=== PATIENT | female | born 1935 | race Caucasian/White ===

== ENCOUNTER 2017-04-14 13:32 | Emergency (ER) | payer MEDICARE, OTHER ==
[2017-04-14 13:50] VITALS: BP 160/74
[2017-04-14] MEDS ORDERED: Sodium Chloride 0.9% 10 ML Syringe FLUSH PRN (14:08)
--- NOTE | 2017-04-15 08:27 | ER ---
Date of Service: 04/14/2017 SUBJECTIVE: Leola presents to the emergency room stating that she has a pneumothorax. The patient is cared for by Bridget Jefferson at [facility] in [place]. The patient underwent a CT scan of her chest approximately 2 days ago and was found to have a spontaneous pneumothorax. The results were subsequently obtained today and the patient was told to come to the emergency room. The patient has a history of spontaneous pneumothoraces, the last 1 being on 02 of July last year. The patient was transferred to [facility] as she was stable and underwent percutaneous reinflation of the lung by Dr. Thompson at Interventional Radiology at [facility]. The patient states that she has been doing relatively well. She states that she is not experiencing any significant shortness of breath and states that she feels normal. PAST MEDICAL HISTORY: 1. Spontaneous pneumothoraces. 2. Severe COPD. 3. Congestive heart failure. 4. Graves disease. 5. Chronic diarrhea. 6. GERD. 7. Osteoporosis. SOCIAL HISTORY: She is an ex-smoker. She denies any alcohol use. MEDICATIONS: Please see MAR. REVIEW OF SYSTEMS: General: Denies any fever or chills. HEENT: No sore throat, rhinorrhea, or congestion. Respiratory: Denies any significant shortness of breath. Cardiac: Denies any substernal chest pain. No jaw, arm, neck, or back pain. Gastrointestinal: No nausea, vomiting, or diarrhea. No melena, hematochezia, or hematemesis. Genitourinary: Denies any dysuria. Musculoskeletal: No myalgias or arthralgias. Neurologic: No fainting, blackouts, or lightheadedness. PHYSICAL EXAMINATION: General: This is a 81-year-old female patient, in no acute distress. Vital Signs: Blood pressure is 160/74, respiratory rate 18, O2 saturations 91% on 3 L, temp is 35.8, and pulse rate is 79. Skin: Warm, pink, and dry. HEENT: Head is normocephalic, atraumatic. Mouth, oral mucosa is moist. Lungs: Diminished on the left. Heart: Regular rate and rhythm. Abdomen: Soft, nontender. There is no hepatosplenomegaly noted. There is no masses noted. Extremities: Without edema. Neurologic: The patient is alert, oriented, and answers all questions appropriately. Her speech is fluent. She is alert to time, date, and place. IMAGING: Portable chest x-ray was obtained. She does have evidence of approximately 30% pneumothorax. Labs consisting of a CBC, comprehensive metabolic panel, PT, PTT, and INR were obtained and pending. ASSESSMENT: Spontaneous pneumothorax. PLAN: I did speak with Dr. Francisco, the hospitalist on-call at [facility]. He will accept the patient in transfer. The patient will be transported by [facility] ground ambulance. MWK: 04/14/2017 14:28:09 MODL: 04/14/2017 18:15:02 /[id number]
== END 2017-04-14 14:45 | disposition short-term general hospital (02) ==
LOC: VM.ED 13:32
DX: J93.83 Other pneumothorax (principal); J44.9 Chronic obstructive pulmonary disease, unspecified; I50.9 Heart failure, unspecified; K21.9 Gastro-esophageal reflux disease without esophagitis; M81.0 Age-related osteoporosis without current pathological fracture; Z87.891 Personal history of nicotine dependence
CPT/HCPCS: 36415; 71010; 80048; 85025; 85610; 99284; 99284-GF

== ENCOUNTER 2019-02-12 18:50 | Emergency (ER) | payer MEDICARE, OTHER ==
--- NOTE | 2019-02-12 20:05 | EDM.PDOC ---
ED HPI GENERAL MEDICAL PROBLEM - General Chief Complaint: Fever Stated Complaint: fever Time Seen by Provider: 02/12/19 19:00 Source of Information: Reports: Patient, Family History Limitations: Reports: No Limitations - History of Present Illness INITIAL COMMENTS - FREE TEXT/NARRATIVE: Pt. presents to ER with complaints of fever. She was seen at [facility] by Bridget Jefferson for bloody stools. Pt. was started on oral cipro and metronidazole , likely for presumed diverticulitis, but it is unknown because the documentation is not done yet. Pt. only started the cipro, however. She states that they only gave her one medication. She states that she does not feel any worse tonight. She has been experiencing intermittent lower abdominal pain but states that she does not have any on arrival to ER. She did have an 11.4 white count today in the clinic and she was quite tachycardic with a heart rate of 124. Pt. has a history of severe anemia and states that her Hgb was down to 4 at one point. She intermittently receives blood transfusions and her HGB today was approx. 7. She states that she is not currently having any rectal bleeding tonight. Onset Date: 02/12/19 Associated Symptoms: Reports: Fever/Chills Low abdominal cramping Pain Score (Numeric/FACES): 2 - Related Data Allergies Allergy/AdvReac Type Severity Reaction Status Date / Time amoxicillin Allergy Cannot Verified 02/12/19 20:10 Remember rofecoxib [From Vioxx] Allergy Edema Verified 02/12/19 20:10 Home Meds: Home Meds Albuterol Sulfate [Albuterol Sulfate HFA] 2 puff INH Q4HR PRN 08/21/13 [History] LORazepam [Ativan] 0.5 mg PO BID 08/21/13 [History] Ascorbic Acid [Vitamin C] 1 tab PO DAILY 04/25/15 [History] Methimazole [Tapazole] 2.5 mg PO DAILY 04/25/15 [History] Cholecalciferol (Vitamin D3) [Vitamin D3] 1,000 unit PO DAILY 01/19/19 [History] Cyanocobalamin (Vitamin B-12) [Vitamin B-12] 1,000 mcg PO DAILY 01/19/19 [ History] Ferrous Sulfate 325 mg PO TID 01/19/19 [History] Folic Acid 1 mg PO DAILY 01/19/19 [History] Ciprofloxacin HCl [Cipro] 500 mg pe PO BID 02/12/19 [History] Past Medical History Other HEENT History: GRAVES DISEASE Cardiovascular History: Reports: Hypertension Respiratory History: Reports: COPD, Pneumothorax Other Respiratory History: HX LUNG COLLAPSE Gastrointestinal History: Reports: Bowel Obstruction, Colon Polyp, Diverticulosis Other Gastrointestinal History: HX COLON POLYPS, +FIT Genitourinary History: Reports: Acute Renal Failure Musculoskeletal History: Reports: Osteoporosis Psychiatric History: Reports: Anxiety Endocrine/Metabolic History: Reports: Hypothyroidism, Osteoporosis, Vitamin D Deficiency, Other (See Below) Other Endocrine/Metabolic History: hypokalemia Immunologic History: Reports: Immunosuppression Oncologic (Cancer) History: Reports: Lung - Past Surgical History Other HEENT Surgeries/Procedures: NASAL PROCEDURE Cardiovascular Surgical History: Reports: None Social & Family History - Caffeine Use Caffeine Use: Reports: Soda ED ROS GENERAL - Review of Systems Review Of Systems: See Below Constitutional: Reports: Fever HEENT: Reports: No Symptoms Respiratory: Reports: No Symptoms Cardiovascular: Reports: No Symptoms Endocrine: Reports: No Symptoms GI/Abdominal: Reports: Other (see HPI. No current pain.) : Reports: No Symptoms Musculoskeletal: Reports: No Symptoms Skin: Reports: No Symptoms Neurological: Reports: No Symptoms Psychiatric: Reports: No Symptoms Hematologic/Lymphatic: Reports: No Symptoms Immunologic: Reports: No Symptoms ED EXAM, GENERAL - Physical Exam Exam: See Below Exam Limited By: No Limitations General Appearance: Alert, WD/WN, No Apparent Distress Neck: Normal Inspection, Supple, Non-Tender Respiratory/Chest: No Respiratory Distress, Lungs Clear, Normal Breath Sounds, No Accessory Muscle Use, Chest Non-Tender Cardiovascular: Normal Peripheral Pulses, Regular Rate, Rhythm, No Edema, No Gallop, No JVD, No Murmur, No Rub GI/Abdominal: Normal Bowel Sounds, Soft, Non-Tender, No Organomegaly, No Distention, No Abnormal Bruit, No Mass, Pelvis Stable (Female) Exam: Deferred Rectal (Female) Exam: Deferred Back Exam: Normal Inspection, Full Range of Motion Extremities: Normal Inspection, Normal Range of Motion, Non-Tender, No Pedal Edema, Normal Capillary Refill Neurological: Alert, Oriented, CN II-XII Intact Course - Vital Signs Last Recorded V/S: Last Vital Signs Temp 37.7 C 02/12/19 20:30 Pulse 94 02/12/19 20:30 Resp 16 02/12/19 20:30 BP 125/46 L 02/12/19 19:00 Pulse Ox 98 02/12/19 20:30 - Orders/Labs/Meds Labs: Laboratory Tests 02/12/19 02/12/19 02/12/19 Range/Units 19:29 19:29 19:29 WBC 8.6 (4.0-10.0) x10^3/uL RBC 3.02 L (4.00-5.50) x10^6/uL Hgb 7.8 L D (12.0-16.0) g/dL Hct 26.4 L (33.0-47.0) % MCV 87.4 D (78.0-93.0) fL MCH 25.8 L (26.0-32.0) pg MCHC 29.5 L (32.0-36.0) g/dL RDW Coeff of Nazanin 18.1 H (10.0-15.0) % Plt Count 236 (130-400) x10^3/uL Neut % (Auto) 89.9 H (50.0-80.0) % Lymph % (Auto) 3.7 L (25.0-50.0) % Smyth % (Auto) 5.7 (2.0-11.0) % Eos % (Auto) 0.6 (0.0-4.0) % Baso % (Auto) 0.1 L (0.2-1.2) % PT 11.8 (10.0-12.8) SEC INR 1.0 L (2.0-3.5) Sodium 139 (136-145) mmol/L Potassium 4.0 (3.5-5.1) mmol/L Chloride 102 (98-107) mmol/L Carbon Dioxide 33 H (21-32) mmol/L Anion Gap 8.0 L (10-20) mmol/L BUN 26 H (7-18) mg/dL Creatinine 1.0 (0.55-1.02) mg/dL Est Cr Clr Drug Dosing 23.38 mL/min Estimated GFR (MDRD) 53 Glucose 104 (74-106) mg/dL Lactic Acid (0.4-2.0) mmol/L Calcium 8.6 (8.5-10.1) mg/dL Corrected Calcium 9.80 (8.5-10.1) mg/dL Phosphorus 2.1 L (2.6-4.7) mg/dL Magnesium 2.5 H (1.8-2.4) mg/dL Total Bilirubin 0.3 (0.2-1.0) mg/dL AST 14 L (15-37) U/L ALT 10 L (14-59) U/L Alkaline Phosphatase 77 (46-116) U/L Total Protein 7.3 (6.4-8.2) g/dL Albumin 2.5 L (3.4-5.0) g/dL Globulin 4.8 Albumin/Globulin Ratio 0.52 TSH, Ultra Sensitive 3.949 H (0.358-3.74) uIU/mL Urine Color (YELLOW) Urine Appearance (CLEAR) Urine pH (5.0-8.0) Ur Specific [place] Urine Protein (NEGATIVE) mg/dL Urine Glucose (UA) (NEGATIVE) mg/dL Urine Ketones (NEGATIVE) mg/dL Urine Occult Blood (NEGATIVE) Urine Nitrite (NEGATIVE) Urine Bilirubin (NEGATIVE) Urine Urobilinogen (0.2) EU/dL Ur Leukocyte Esterase (NEGATIVE) Urine RBC (NOT SEEN) /HPF Urine WBC (NOT SEEN) /HPF Ur Squamous Epith Cells (NEGATIVE) /HPF Urine Bacteria (NEGATIVE) /HPF Hyaline Casts (NEGATIVE) /HPF Urine Mucus (NEGATIVE) /LPF 02/12/19 02/12/19 Range/Units 19:29 19:45 WBC (4.0-10.0) x10^3/uL RBC (4.00-5.50) x10^6/uL Hgb (12.0-16.0) g/dL Hct (33.0-47.0) % MCV (78.0-93.0) fL MCH (26.0-32.0) pg MCHC (32.0-36.0) g/dL RDW Coeff of Nazanin (10.0-15.0) % Plt Count (130-400) x10^3/uL Neut % (Auto) (50.0-80.0) % Lymph % (Auto) (25.0-50.0) % Smyth % (Auto) (2.0-11.0) % Eos % (Auto) (0.0-4.0) % Baso % (Auto) (0.2-1.2) % PT (10.0-12.8) SEC INR (2.0-3.5) Sodium (136-145) mmol/L Potassium (3.5-5.1) mmol/L Chloride (98-107) mmol/L Carbon Dioxide (21-32) mmol/L Anion Gap (10-20) mmol/L BUN (7-18) mg/dL Creatinine (0.55-1.02) mg/dL Est Cr Clr Drug Dosing mL/min Estimated GFR (MDRD) Glucose (74-106) mg/dL Lactic Acid 0.7 (0.4-2.0) mmol/L Calcium (8.5-10.1) mg/dL Corrected Calcium (8.5-10.1) mg/dL Phosphorus (2.6-4.7) mg/dL Magnesium (1.8-2.4) mg/dL Total Bilirubin (0.2-1.0) mg/dL AST (15-37) U/L ALT (14-59) U/L Alkaline Phosphatase (46-116) U/L Total Protein (6.4-8.2) g/dL Albumin (3.4-5.0) g/dL Globulin Albumin/Globulin Ratio TSH, Ultra Sensitive (0.358-3.74) uIU/mL Urine Color Yellow (YELLOW) Urine Appearance Cloudy H (CLEAR) Urine pH 8.5 H (5.0-8.0) Ur Specific [place] 1.015 Urine Protein 100 H (NEGATIVE) mg/dL Urine Glucose (UA) Negative (NEGATIVE) mg/dL Urine Ketones Negative (NEGATIVE) mg/dL Urine Occult Blood Negative (NEGATIVE) Urine Nitrite Negative (NEGATIVE) Urine Bilirubin Negative (NEGATIVE) Urine Urobilinogen 1.0 (0.2) EU/dL Ur Leukocyte Esterase Trace H (NEGATIVE) Urine RBC 0-5 (NOT SEEN) /HPF Urine WBC 5-10 H (NOT SEEN) /HPF Ur Squamous Epith Cells Few H (NEGATIVE) /HPF Urine Bacteria Few H (NEGATIVE) /HPF Hyaline Casts Few H (NEGATIVE) /HPF Urine Mucus Few H (NEGATIVE) /LPF Meds: Medications Discontinued Medications Generic Name Dose Route Start Last Admin Trade Name Freq PRN Reason Stop Dose Admin Metronidazole 1 packet 06/03/19 20:22 02/12/19 20:28 Take Home: Metronidazole 500 Mg, 4 Tab Pack PO 02/12/19 20:23 1 packet ONETIME ONE Administration Departure - Departure Time of Disposition: 20:30 Disposition: Home, Self-Care 01 Clinical Impression: Fever - Discharge Information Instructions: Diverticulitis, [id number] Referrals: Bridget Jefferson DENTAL TECHNICIAN APPRENTICE [Primary Care Provider] - Forms: ED Department Discharge Additional Instructions: Cipro 500mg twice daily for 10 days Flagyl 500mg three times daily It is important you take these medications as prescribed. Recheck in clinic in 10-14 days - Assessment/Plan Plan: Cipro 500mg twice daily for 10 days Flagyl 500mg three times daily It is important you take these medications as prescribed. Recheck in clinic in 10-14 days
[2019-02-12 20:10] VITALS: BP 125/46
[2019-02-12] MEDS ORDERED: Take Home: metroNIDAZOLE 500 MG Tab, 4 Tab Pack PO ONE (20:22)
== END 2019-02-12 20:50 | disposition home or self-care (01) ==
LOC: VM.ED 18:50
DX: R50.9 Fever, unspecified (principal); I10 Essential (primary) hypertension; F41.9 Anxiety disorder, unspecified; E03.9 Hypothyroidism, unspecified; Z88.1 Allergy status to other antibiotic agents; Z88.8 Allergy status to other drugs, medicaments and biological substances; Z79.899 Other long term (current) drug therapy
CPT/HCPCS: 36415; 80053; 81001; 83605; 83735; 84100; 84443; 85025; 85610; 99284; A9270

== ENCOUNTER 2019-03-12 09:12 | Day surgery (SDC) | payer MEDICARE, OTHER ==
[~2019-03-12 09:12] MED LIST: Lactated Ringers 1,000 ML IV SCH; Sodium Chloride 0.9% 10 ML Syringe FLUSH PRN
[2019-03-12] MEDS ORDERED: Propofol 200 MG/20 ML SDV ONE (10:58)
[2019-03-12 14:16] VITALS: BP 111/47
--- NOTE | 2019-03-12 19:19 | OR ---
PREOPERATIVE DIAGNOSIS: Blood per rectum. POSTOPERATIVE DIAGNOSIS: Near obstructing sigmoid mass. PROCEDURE PERFORMED: Colonoscopy. This was stopped in the procedure secondary to not able to get past the sigmoid mass. INDICATIONS: Ms. Turcios is an 83-year-old female with history of weight loss and blood per rectum, who presents for colonoscopy for further evaluation. PROCEDURE IN DETAIL: This was done in the endoscopy suite. Sedation was given per Anesthesia. She was placed in left lateral position. First, a rectal exam was done, was normal. Scope was introduced into the rectum, slowly advanced to the rectum, and into the sigmoid colon. 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 I was able to get past the mass despite multiple attempts. I did not do biopsy of the mass as it will not change her need for definitive surgery. The scope was slowly withdrawn. No other lesions found. FINAL DIAGNOSIS: Near obstructing sigmoid mass. PLAN: We will set her up for a sigmoid colectomy in the near future. BKD: 03/12/2019 12:44:53 MODL: 03/12/2019 19:13:14 /[id number]
== END 2019-03-12 14:10 | disposition home or self-care (01) ==
LOC: VM.SDS 09:12
PROVIDERS: ATTEND Surgery
DX: K62.5 Hemorrhage of anus and rectum (principal); R19.04 Left lower quadrant abdominal swelling, mass and lump; R63.4 Abnormal weight loss; I10 Essential (primary) hypertension; E53.8 Deficiency of other specified B group vitamins; E04.2 Nontoxic multinodular goiter; C34.31 Malignant neoplasm of lower lobe, right bronchus or lung; D50.9 Iron deficiency anemia, unspecified; J44.9 Chronic obstructive pulmonary disease, unspecified; F41.9 Anxiety disorder, unspecified; F17.210 Nicotine dependence, cigarettes, uncomplicated; K21.9 Gastro-esophageal reflux disease without esophagitis; M81.0 Age-related osteoporosis without current pathological fracture; Z88.6 Allergy status to analgesic agent; Z68.1 Body mass index [BMI] 19.9 or less, adult; Z99.81 Dependence on supplemental oxygen; Z86.010 Personal history of colon polyps; Z80.0 Family history of malignant neoplasm of digestive organs; Z79.899 Other long term (current) drug therapy
CPT/HCPCS: 00812; J2704; J7120

== ENCOUNTER 2019-04-24 10:52 | Inpatient (IN) | payer MEDICARE, OTHER ==
[2019-04-24] MEDS ORDERED: Sodium Chloride 0.9% 10 ML Syringe FLUSH PRN (11:02)
[2019-04-24] MEDS ORDERED: methylPREDNISolone Sodium Succinate 40 MG/1 ML SDV IVPUSH ONE (11:02)
--- NOTE | 2019-04-24 11:10 | EDM.PDOC ---
ED HPI GENERAL MEDICAL PROBLEM - General Chief Complaint: General Stated Complaint: STATUS POST SURGERY;WEAK Time Seen by Provider: 04/24/19 10:52 Source of Information: Reports: Patient, EMS History Limitations: Reports: Other (mild confusion) - History of Present Illness INITIAL COMMENTS - FREE TEXT/NARRATIVE: Patient presents via EMS after [facility] home [facility] had concerns of increasing weakness, confusion, decreased appetite, weight loss. EMS was called last Tuesday but refused to come to the ED. These were similar type symptoms. Recent colectomy that she states was on 04/12/19. History of lung and colon cancer. She is short of breath, however this is chronic due to her COPD. Denies history of diabetes, NM, CVA. She appears frail and is quite noticeably thin. Denies cough, urine in blood or stools, no abdominal pain, nausea or vomiting. She denies chest pain, headache, neck ache. Onset: Gradual Duration: Getting Worse Location: Reports: Generalized Severity: Moderate Associated Symptoms: Reports: Loss of Appetite, Weakness - Related Data Allergies Allergy/AdvReac Type Severity Reaction Status Date / Time amoxicillin Allergy Cannot Verified 04/24/19 11:17 Remember rofecoxib [From Vioxx] Allergy Edema Verified 04/24/19 11:17 Home Meds: Home Meds Albuterol Sulfate [Albuterol Sulfate HFA] 2 puff INH Q4HR PRN 08/21/13 [History] LORazepam [Ativan] 0.5 mg PO Q6HR PRN 08/21/13 [History] Ascorbic Acid [Vitamin C] 1 tab PO DAILY 04/25/15 [History] Methimazole [Tapazole] 2.5 mg PO DAILY 04/25/15 [History] Cholecalciferol (Vitamin D3) [Vitamin D3] 1,000 unit PO DAILY 01/19/19 [History] Cyanocobalamin (Vitamin B-12) [Vitamin B-12] 1,000 mcg PO DAILY 01/19/19 [ History] Ferrous Sulfate 325 mg PO TIDMEALS 01/19/19 [History] Folic Acid 1 mg PO DAILY 01/19/19 [History] Denosumab [Prolia] 60 mg SQ Q180D 03/07/19 [History] Dicyclomine [Bentyl] 10 mg PO BID 04/24/19 [History] Diphenhyd/Lidocaine/Nystatin [First-Bxn Mouthwash] 5 ml PO QID 04/24/19 [History ] Past Medical History Other HEENT History: GRAVES DISEASE Cardiovascular History: Reports: Hypertension, SOB on Exertion Respiratory History: Reports: COPD, Other (See Below) Other Respiratory History: OXYGEN DEPENDENT, SPONTANEOUS PNEUMOTHORAX, 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, SECONDARY SPONTANEOUS PNEUMOTHORAX Gastrointestinal History: Reports: Colon Polyp, GERD Other Gastrointestinal History: HX COLON POLYPS, +FIT Genitourinary History: Reports: Acute Renal Failure Musculoskeletal History: Reports: Osteoporosis Psychiatric History: Reports: Anxiety, Other (See Below) Other Psychiatric History: NICOTINE DEPENDENCE Endocrine/Metabolic History: Reports: Hypothyroidism, Vitamin D Deficiency, Other (See Below) Other Endocrine/Metabolic History: NONTOXIC MULTINODULAR GOITER Hematologic History: Reports: Folic Acid, Iron Deficiency Immunologic History: Reports: Immunosuppression Oncologic (Cancer) History: Reports: Lung - Past Surgical History Other HEENT Surgeries/Procedures: NASAL PROCEDURE Cardiovascular Surgical History: Reports: None Social & Family History - Caffeine Use Caffeine Use: Reports: Coffee ED ROS GENERAL - Review of Systems Review Of Systems: See Below Constitutional: Reports: Weakness HEENT: Reports: No Symptoms Respiratory: Reports: Shortness of Breath Cardiovascular: Reports: No Symptoms Endocrine: Reports: No Symptoms GI/Abdominal: Reports: No Symptoms : Reports: No Symptoms Musculoskeletal: Reports: No Symptoms Skin: Reports: No Symptoms Neurological: Reports: Confusion Psychiatric: Reports: No Symptoms Hematologic/Lymphatic: Reports: No Symptoms Immunologic: Reports: No Symptoms ED EXAM, GENERAL - Physical Exam Exam: See Below Exam Limited By: Other (Some confusion. Is alert and oriented, but forgetful) General Appearance: Alert, WD/WN, No Apparent Distress, Thin Eye Exam: Bilateral Eye: EOMI, Normal Inspection, PERRL Ears: Normal TMs Nose: Normal Inspection, Normal Mucosa, No Blood Throat/Mouth: Normal Inspection, Normal Lips, Normal Teeth, Normal Gums, Normal Oropharynx, Normal Voice, No Airway Compromise Head: Atraumatic, Normocephalic Neck: Normal Inspection, Supple, Non-Tender, Full Range of Motion Respiratory/Chest: No Respiratory Distress, Lungs Clear, No Accessory Muscle Use , Chest Non-Tender, Decreased Breath Sounds Cardiovascular: Normal Peripheral Pulses, Regular Rate, Rhythm, No Murmur Peripheral Pulses: 2+: Posterior Tibial (L), Posterior Tibial (R), Dorsalis Pedis (L), Dorsalis Pedis (R) GI/Abdominal: Normal Bowel Sounds, Soft, Non-Tender, No Organomegaly, No Distention, No Abnormal Bruit, No Mass Back Exam: Normal Inspection, Full Range of Motion, NT Extremities: Normal Inspection, Normal Range of Motion, Normal Capillary Refill , Pedal Edema Neurological: Alert, Oriented, CN II-XII Intact, Normal Reflexes, Confused Psychiatric: Normal Affect, Normal Mood Skin Exam: Dry, Intact, Normal Color, No Rash, Cool, Wound/Incision (colectomy incision to abdomen is clean, dry, intact. No redness noted. Bandage to back) Lymphatic: No Adenopathy EKG INTERPRETATION EKG Date: 04/24/19 Time: 11:54 Rhythm: NSR Rate (Beats/Min): 84 [place]: Normal P-Wave: Present QRS: Normal ST-T: Normal QT: Normal Comparison: NA - No Prior EKG EKG Interpretation Comments: sinus rhythm with PAC's Course - Vital Signs Last Recorded V/S: Last Vital Signs Temp 36.5 C 04/24/19 13:06 Pulse 96 04/24/19 13:06 Resp 16 04/24/19 13:06 BP 130/55 L 04/24/19 13:06 Pulse Ox 100 04/24/19 13:06 - Orders/Labs/Meds Orders: Active Orders 24 hr Category Date Time Status CULTURE BLOOD [BC] Stat Lab 04/24/19 11:16 Received CULTURE BLOOD [BC] Stat Lab 04/24/19 11:23 Received Sodium Chloride 0.9% [Normal Saline] 1,000 ml Med 04/24/19 11:15 Active IV ASDIRECTED Sodium Chloride 0.9% [Saline Flush] Med 04/24/19 11:02 Active 10 ml FLUSH ASDIRECTED PRN Blood Culture x2 Reflex Set [OM.PC] Stat Oth 04/24/19 11:02 Ordered Saline Lock Insert [OM.PC] Routine Oth 04/24/19 11:02 Ordered Medication Orders Sodium Chloride (Normal Saline) 1,000 mls @ 999 mls/hr IV ASDIRECTED CODY Last Admin: 04/24/19 11:42 Dose: 999 mls/hr Potassium Chloride/Dextrose/Sod Cl (D5 1/2 Ns W/ 40 Meq/L Kcl) 1,000 mls @ 100 mls/hr IV ASDIRECTED CODY Sodium Chloride (Saline Flush) 10 ml FLUSH ASDIRECTED PRN PRN Reason: Keep Vein Open Labs: Laboratory Tests 04/24/19 04/24/19 04/24/19 Range/Units 11:16 11:16 11:16 WBC 13.7 H (4.0-10.0) x10^3/uL RBC 3.08 L (4.00-5.50) x10^6/uL Hgb 8.9 L D (12.0-16.0) g/dL Hct 28.9 L (33.0-47.0) % MCV 93.8 H D (78.0-93.0) fL MCH 28.9 (26.0-32.0) pg MCHC 30.8 L (32.0-36.0) g/dL RDW Coeff of Naz[place] 15.5 H (10.0-15.0) % Plt Count 305 (130-400) x10^3/uL Neut % (Auto) 96.5 H (50.0-80.0) % Lymph % (Auto) 1.3 L (25.0-50.0) % [place] % (Auto) 2.1 (2.0-11.0) % Eos % (Auto) 0.1 (0.0-4.0) % Baso % (Auto) 0.0 L (0.2-1.2) % PT 12.4 (10.0-12.8) SEC INR 1.1 L (2.0-3.5) POC ABG pH (7.35-7.45) POC ABG pCO2 (35-45) mmHG POC ABG pO2 (80-105) mmHG POC ABG HCO3 (22-26) mmol/L POC ABG Total CO2 (23-27) mmol/L POC ABG O2 Sat (95-98) % POC ABG Base Excess (-2-3) mmol/L POC FiO2 Sodium 143 (136-145) mmol/L Potassium 3.2 L (3.5-5.1) mmol/L Chloride 103 (98-107) mmol/L Carbon Dioxide 34 H (21-32) mmol/L Anion Gap 9.2 L (10-20) mmol/L BUN 23 H (7-18) mg/dL Creatinine 0.8 (0.55-1.02) mg/dL Est Cr Clr Drug Dosing TNP Estimated GFR (MDRD) > 60 Glucose 102 (74-106) mg/dL Lactic Acid (0.4-2.0) mmol/L Calcium 8.9 (8.5-10.1) mg/dL Corrected Calcium 10.34 H (8.5-10.1) mg/dL Magnesium 2.0 (1.8-2.4) mg/dL Total Bilirubin 0.6 (0.2-1.0) mg/dL AST 11 L (15-37) U/L ALT 11 L (14-59) U/L Alkaline Phosphatase 93 (46-116) U/L Troponin I < 0.017 (<=0.056) ng/mL C-Reactive Protein 21.6 H (<=0.9) mg/dL NT-Pro-B Natriuret Pep 3008 H (<=450) pg/mL Total Protein 6.5 (6.4-8.2) g/dL Albumin 2.2 L (3.4-5.0) g/dL Globulin 4.3 Albumin/Globulin Ratio 0.51 TSH, Ultra Sensitive 2.867 (0.358-3.74) uIU/mL Urine Color (YELLOW) Urine Appearance (CLEAR) Urine pH (5.0-8.0) Ur Specific [place] Urine Protein (NEGATIVE) mg/dL Urine Glucose (UA) (NEGATIVE) mg/dL Urine Ketones (NEGATIVE) mg/dL Urine Occult Blood (NEGATIVE) Urine Nitrite (NEGATIVE) Urine Bilirubin (NEGATIVE) Urine Urobilinogen (0.2) EU/dL Ur Leukocyte Esterase (NEGATIVE) Urine RBC (NOT SEEN) /HPF Urine WBC (NOT SEEN) /HPF Ur Squamous Epith Cells (NEGATIVE) /HPF Ur Renal Epithelial Cell (NEGATIVE) /HPF Urine Bacteria (NEGATIVE) /HPF Hyaline Casts (NEGATIVE) /HPF Urine Mucus (NEGATIVE) /LPF 04/24/19 04/24/19 04/24/19 Range/Units 11:16 11:37 12:14 WBC (4.0-10.0) x10^3/uL RBC (4.00-5.50) x10^6/uL Hgb (12.0-16.0) g/dL Hct (33.0-47.0) % MCV (78.0-93.0) fL MCH (26.0-32.0) pg MCHC (32.0-36.0) g/dL RDW Coeff of [place] (10.0-15.0) % Plt Count (130-400) x10^3/uL Neut % (Auto) (50.0-80.0) % Lymph % (Auto) (25.0-50.0) % [place] % (Auto) (2.0-11.0) % Eos % (Auto) (0.0-4.0) % Baso % (Auto) (0.2-1.2) % PT (10.0-12.8) SEC INR (2.0-3.5) POC ABG pH 7.411 (7.35-7.45) POC ABG pCO2 50 H (35-45) mmHG POC ABG pO2 129 H (80-105) mmHG POC ABG HCO3 32 H (22-26) mmol/L POC ABG Total CO2 33 H (23-27) mmol/L POC ABG O2 Sat 99 H (95-98) % POC ABG Base Excess 7 H (-2-3) mmol/L POC FiO2 0.36 Sodium (136-145) mmol/L Potassium (3.5-5.1) mmol/L Chloride (98-107) mmol/L Carbon Dioxide (21-32) mmol/L Anion Gap (10-20) mmol/L BUN (7-18) mg/dL Creatinine (0.55-1.02) mg/dL Est Cr Clr Drug Dosing Estimated GFR (MDRD) Glucose (74-106) mg/dL Lactic Acid 1.0 (0.4-2.0) mmol/L Calcium (8.5-10.1) mg/dL Corrected Calcium (8.5-10.1) mg/dL Magnesium (1.8-2.4) mg/dL Total Bilirubin (0.2-1.0) mg/dL AST (15-37) U/L ALT (14-59) U/L Alkaline Phosphatase (46-116) U/L Troponin I (<=0.056) ng/mL C-Reactive Protein (<=0.9) mg/dL NT-Pro-B Natriuret Pep (<=450) pg/mL Total Protein (6.4-8.2) g/dL Albumin (3.4-5.0) g/dL Globulin Albumin/Globulin Ratio TSH, Ultra Sensitive (0.358-3.74) uIU/mL Urine Color Dark yellow H (YELLOW) Urine Appearance Cloudy H (CLEAR) Urine pH 6.0 (5.0-8.0) Ur Specific [place] 1.020 Urine Protein 100 H (NEGATIVE) mg/dL Urine Glucose (UA) Negative (NEGATIVE) mg/dL Urine Ketones 15 H (NEGATIVE) mg/dL Urine Occult Blood Trace-intact H (NEGATIVE) Urine Nitrite Negative (NEGATIVE) Urine Bilirubin Moderate H (NEGATIVE) Urine Urobilinogen 0.2 (0.2) EU/dL Ur Leukocyte Esterase Small H (NEGATIVE) Urine RBC 5-10 H (NOT SEEN) /HPF Urine WBC 10-20 H (NOT SEEN) /HPF Ur Squamous Epith Cells Moderate H (NEGATIVE) /HPF Ur Renal Epithelial Cell Rare H (NEGATIVE) /HPF Urine Bacteria Few H (NEGATIVE) /HPF Hyaline Casts Moderate H (NEGATIVE) /HPF Urine Mucus Few H (NEGATIVE) /LPF Meds: Medications Generic Name Dose Route Start Last Admin Trade Name Freq PRN Reason Stop Dose Admin Sodium Chloride 1,000 mls @ 999 mls/hr 04/24/19 11:15 04/24/19 11:42 Normal Saline IV 999 mls/hr ASDIRECTED CODY Administration Potassium Chloride/Dextrose/Sod Cl 1,000 mls @ 100 mls/hr 04/24/19 13:00 D5 1/2 Ns W/ 40 Meq/L Kcl IV ASDIRECTED CODY Sodium Chloride 10 ml 04/24/19 11:02 Saline Flush FLUSH ASDIRECTED PRN Keep Vein Open Discontinued Medications Generic Name Dose Route Start Last Admin Trade Name Freq PRN Reason Stop Dose Admin Ceftriaxone Sodium 1 gm 04/24/19 12:49 04/24/19 13:05 Rocephin IVPUSH 04/24/19 12:50 1 gm STAT ONE Administration Methylprednisolone Sodium Succinate 40 mg 04/24/19 11:02 04/24/19 11:43 Solu-Medrol IVPUSH 04/24/19 11:03 40 mg ONETIME ONE Administration - Radiology Interpretation Free Text/Narrative:: COPD seen Departure - Departure Time of Disposition: 13:41 Disposition: Refer to Observation Condition: Poor Clinical Impression: UTI, Urinary tract infectious disease - Discharge Information *PRESCRIPTION DRUG MONITORING PROGRAM REVIEWED*: Not Applicable *COPY OF PRESCRIPTION DRUG MONITORING REPORT IN PATIENT RAISSA: Not Applicable ED Communication - ED Communication Date/Time Date: 04/24/19 Time Called: 13:20 - Discussed Case With (1) Discussed Case With (1): Other (Huseyin Bruno contacted to admit, however Leola is wishing to go home. She did agree to be admitted overnight.) - Problem List & Annotations (1) UTI, Urinary tract infectious disease SNOMED Code(s): 95216305 Code(s): N39.0 - URINARY TRACT INFECTION, SITE NOT SPECIFIED Status: Acute Priority: Medium Current Visit: Yes - Problem List Review Problem List Initiated/Reviewed/Updated: Yes - My Orders Last 24 Hours: My Active Orders 04/24/19 11:02 Sodium Chloride 0.9% [Saline Flush] 10 ml FLUSH ASDIRECTED PRN Blood Culture x2 Reflex Set [OM.PC] Stat Saline Lock Insert [OM.PC] Routine 04/24/19 11:15 Sodium Chloride 0.9% [Normal Saline] 1,000 ml IV ASDIRECTED 04/24/19 11:16 CULTURE BLOOD [BC] Stat 04/24/19 11:23 CULTURE BLOOD [BC] Stat - Assessment/Plan Last 24 Hours: My Active Orders 04/24/19 11:02 Sodium Chloride 0.9% [Saline Flush] 10 ml FLUSH ASDIRECTED PRN Blood Culture x2 Reflex Set [OM.PC] Stat Saline Lock Insert [OM.PC] Routine 04/24/19 11:15 Sodium Chloride 0.9% [Normal Saline] 1,000 ml IV ASDIRECTED 04/24/19 11:16 CULTURE BLOOD [BC] Stat 04/24/19 11:23 CULTURE BLOOD [BC] Stat Assessment:: urinary tract infection Plan: Plan Admit to observation for IV antibiotics, electrolyte correction and hydration. Patient wants to be discharged tomorrow regardless and wants to have home hospice for her on her discharge. Huseyin Bruno will contact [facility] to have them evaluate her to determine the appropriate level of care upon discharge. She has been told that we would like to admit for 3-4 days and she has refused. Risks were discuss. She does understand the consequences of this choice.
[2019-04-24] MEDS ORDERED: Sodium Chloride 0.9% 1,000 ML IV SCH (11:15)
--- NOTE | 2019-04-24 11:30 | CR ---
[id number] RAD/RAD Chest PA or AP 1V EXAM: RAD Chest PA or AP 1V INDICATION: SHORT OF BREATH. COMPARISON: December 14, 2018. DISCUSSION: Advanced changes of COPD are again seen. Additionally, there are scattered areas of parenchymal opacity most prominent in the lung bases. Findings on the left of increased since the prior examination. Findings are nonspecific and could represent scarring, subsegmental atelectasis, aspiration, or pneumonia. Resolution of previously seen right lung pneumothorax. IMPRESSION: As above. Sd Duque MD 04/24/19 1127 Thank you for allowing us to participate in the care of your patient.
[2019-04-24 12:08] LABS: CHLORIDE,CL 103 mmol/L (98-107); SODIUM,NA 143 mmol/L (136-145)
[2019-04-24 12:12] LABS: ANION GAP 9.2 mmol/L (10-20)
[2019-04-24] MEDS ORDERED: cefTRIAXone 1 GM Vial IVPUSH ONE (12:49)
[2019-04-24] MEDS: D5 1/2 NS w/ 40 mEq/L KCl 1,000 ML IV SCH (14:36)
[2019-04-24] MEDS ORDERED: LORazepam 0.5 MG Tab PO PRN (18:15)
[2019-04-24] MEDS ORDERED: Dicyclomine 10 MG Cap PO PRN (18:15)
[2019-04-24] MEDS ORDERED: Acetaminophen 325 MG Tab PO PRN (18:15)
[2019-04-24] MEDS ORDERED: Ondansetron 4 MG/2 ML SDV IV PRN (18:17)
[2019-04-24] MEDS ORDERED: Temazepam 15 MG Cap PO PRN (18:17)
[2019-04-24] MEDS ORDERED: Morphine 2 MG/ML Syringe IVPUSH PRN (18:17)
[2019-04-24] MEDS ORDERED: Albuterol/Ipratropium 3.0-0.5 MG/3 ML Neb Soln NEB PRN (18:17)
[2019-04-24] MEDS ORDERED: Bisacodyl 5 MG Tab PO PRN (18:17)
[2019-04-24] MEDS: Folic Acid 1 MG Tab PO SCH (18:43)
[2019-04-24] MEDS: Methimazole 10 MG Tab PO SCH (18:43)
[2019-04-24] MEDS ORDERED: Albuterol 0.083% 2.5 MG/3 ML Neb Soln INH PRN (20:00)
[2019-04-25] MEDS: D5 1/2 NS w/ 40 mEq/L KCl 1,000 ML IV SCH (00:38)
[2019-04-25 07:02] LABS: CHLORIDE,CL 106 mmol/L (98-107); SODIUM,NA 141 mmol/L (136-145)
[2019-04-25 07:03] LABS: ANION GAP 9.6 mmol/L (10-20)
[2019-04-25] MEDS ORDERED: Ciprofloxacin 500 MG Tab PO SCH ×2 (08:00→12:00)
[2019-04-25] MEDS: Ferrous Sulfate 325 MG Tab PO SCH ×3 (09:06→18:09)
[2019-04-25] MEDS: Folic Acid 1 MG Tab PO SCH (09:06)
[2019-04-25] MEDS: Methimazole 10 MG Tab PO SCH (09:06)
--- NOTE | 2019-04-25 12:47 | PCM.PN ---
- General Info Date of Service: 04/25/19 Admission Dx/Problem (Free Text): Pt. continues to be very weak and unable to ambulate. Urine and blood cultures + for gram + rods. She has been afebrile since admission. Potassium was repleted and has increased to 4.6 from 3.2. Pt. denies any chest pain or shortness of breath. Appetite has been poor. Pt. denies any nausea or vomiting. No chest pain or shortness of breath. Denies any diarrhea. Pt. is adamant that she be discharged today, despite being septic and severely ill. Discussed this at length with patient. I spoke with son, Jp who states that no family members would be able to help the patient. Pt. seemed confused about her diagnoses, plan of care, etc. and I question her ability to be able to make accurate decisions. Son concurs that the patient have been having trouble taking care of herself and questions her cognitive ability. Functional Status: Reports: Pain Controlled - Review of Systems General: Reports: Weakness, Fatigue HEENT: Reports: No Symptoms Pulmonary: Reports: No Symptoms Cardiovascular: Reports: No Symptoms Gastrointestinal: Reports: No Symptoms Genitourinary: Reports: Other (UTI). Denies: Dysuria, Frequency, Burning, Flank Pain Musculoskeletal: Reports: No Symptoms Skin: Reports: No Symptoms Neurological: Reports: Confusion, Weakness. Denies: Headache, Numbness, Paresthesia, Seizure Psychiatric: Reports: No Symptoms - Patient Data Vitals - Most Recent: Last Vital Signs Temp 36.3 C 04/25/19 10:00 Pulse 80 04/25/19 10:00 Resp 16 04/25/19 10:00 BP 112/60 04/25/19 10:00 Pulse Ox 98 04/25/19 10:00 Weight - Most Recent: 34.609 kg I&O - Last 24 Hours: Intake & Output 04/24/19 04/25/19 04/25/19 22:59 06:59 14:59 Intake Total 357 1555 Balance 357 1555 Lab Results Last 24 Hours: Laboratory Results - last 24 hr 04/25/19 04/25/19 Range/Units 06:42 06:42 WBC 12.3 H (4.0-10.0) x10^3/uL RBC 3.03 L (4.00-5.50) x10^6/uL Hgb 8.8 L (12.0-16.0) g/dL Hct 28.5 L (33.0-47.0) % MCV 94.1 H (78.0-93.0) fL MCH 29.0 (26.0-32.0) pg MCHC 30.9 L (32.0-36.0) g/dL RDW Coeff of Nazanin 15.5 H (10.0-15.0) % Plt Count 311 (130-400) x10^3/uL Neut % (Auto) 97.5 H (50.0-80.0) % Lymph % (Auto) 1.1 L (25.0-50.0) % [place] % (Auto) 1.4 L (2.0-11.0) % Eos % (Auto) 0.0 (0.0-4.0) % Baso % (Auto) 0.0 L (0.2-1.2) % Sodium 141 (136-145) mmol/L Potassium 4.6 (3.5-5.1) mmol/L Chloride 106 (98-107) mmol/L Carbon Dioxide 30 (21-32) mmol/L Anion Gap 9.6 L (10-20) mmol/L BUN 21 H (7-18) mg/dL Creatinine 0.9 (0.55-1.02) mg/dL Est Cr Clr Drug Dosing 26.78 mL/min Estimated GFR (MDRD) > 60 Glucose 162 H (74-106) mg/dL Calcium 7.8 L (8.5-10.1) mg/dL [place] Results Last 24 Hours: Microbiology 04/24/19 11:23 Aerobic Blood Culture - Preliminary Blood - Venous - Lab Draw NO GROWTH AFTER 1 DAY Anaerobic Blood Culture - Preliminary Gram Positive Rods 04/24/19 11:16 Aerobic Blood Culture - Preliminary Blood - Venous NO GROWTH AFTER 1 DAY Anaerobic Blood Culture - Preliminary NO GROWTH AFTER 1 DAY 04/24/19 12:14 Urine Culture - Preliminary Urine, Clean Catch Gram Negative Rods Med Orders - Current: Current Medications Acetaminophen (Tylenol) 650 mg PO Q4HR PRN PRN Reason: Pain Albuterol (Proventil Neb Soln) 2.5 mg INH Q4H PRN PRN Reason: Dyspnea Albuterol/Ipratropium (Duoneb 3.0-0.5 Mg/3 Ml) 3 ml NEB Q4H PRN PRN Reason: dyspnea/wheezing Bisacodyl (Dulcolax) 5 mg PO DAILY PRN PRN Reason: Constipation Ciprofloxacin (Ciprofloxacin Hcl) 500 mg PO Q18H [facility] Last Admin: 04/25/19 11:56 Dose: 500 mg Dicyclomine HCl (Bentyl) 10 mg PO BID PRN PRN Reason: Nausea Ferrous Sulfate (Ferrous Sulfate) 325 mg PO TIDMEALS [facility] Last Admin: 04/25/19 11:56 Dose: 325 mg Folic Acid (Folic Acid) 1 mg PO DAILY [facility] Last Admin: 04/25/19 09:06 Dose: 1 mg Potassium Chloride/Dextrose/Sod Cl (D5 1/2 Ns W/ 40 Meq/L Kcl) 1,000 mls @ 100 mls/hr IV ASDIRECTED [facility] Last Admin: 04/25/19 00:38 Dose: 100 mls/hr Lorazepam (Ativan) 0.5 mg PO Q6HR PRN PRN Reason: Anxiety Last Admin: 04/24/19 21:53 Dose: 0.5 mg Methimazole (Methimazole) 2.5 mg PO DAILY [facility] Last Admin: 04/25/19 09:06 Dose: 2.5 mg Morphine Sulfate (Morphine) 2 mg IVPUSH Q2H PRN PRN Reason: Pain (severe 7-10) Last Admin: 04/24/19 20:55 Dose: 2 mg Non-Formulary Medication (Diphenhyd/Lidocaine/Nystatin [Magic Mouthwash]) 5 ml PO QID [facility] Ondansetron HCl (Zofran) 4 mg IV Q6H PRN PRN Reason: Nausea/Vomiting Sodium Chloride (Saline Flush) 10 ml FLUSH ASDIRECTED PRN PRN Reason: Keep Vein Open Temazepam (Restoril) 15 mg PO BEDTIME PRN PRN Reason: Sleep Vancomycin HCl (Pharmacy To Dose - Vancomycin) 1 dose .XX ASDIRECTED [facility] Discontinued Medications Ceftriaxone Sodium (Rocephin) 1 gm IVPUSH STAT ONE Stop: 04/24/19 12:50 Last Admin: 04/24/19 13:05 Dose: 1 gm Ciprofloxacin (Ciprofloxacin Hcl) 500 mg PO BID [facility] Last Admin: 04/25/19 08:56 Dose: Not Given Sodium Chloride (Normal Saline) 1,000 mls @ 999 mls/hr IV ASDIRECTED [facility] Last Admin: 04/24/19 11:42 Dose: 999 mls/hr Methylprednisolone Sodium Succinate (Solu-Medrol) 40 mg IVPUSH ONETIME ONE Stop: 04/24/19 11:03 Last Admin: 04/24/19 11:43 Dose: 40 mg - Exam Quality Assessment: Supplemental Oxygen General: Alert, Oriented HEENT: Pupils Equal, Pupils Reactive, EOMI, Mucous Membr. Moist/[place] Neck: Supple Lungs: Other (diminished throughout. severely barrel-chested. Minimal wheezing noted.) Cardiovascular: Regular Rate, Regular Rhythm GI/Abdominal Exam: Normal Bowel Sounds, Soft, Non-Tender, No Organomegaly (Female) Exam: Deferred Back Exam: Normal Inspection, Full Range of Motion Extremities: Normal Inspection, Normal Range of Motion, Non-Tender, No Pedal Edema, Normal Capillary Refill Peripheral Pulses: 3+: Radial (L) Skin: Warm, Dry, Intact Wound/Incisions: Healing Well Neurological: Strength Equal Bilateral, Cranial Nerves Intact, Other (confused, unable to comprehend what she is being told.) Psy/Mental Status: Alert - Problem List Review Problem List Initiated/Reviewed/Updated: Yes - My Orders Last 24 Hours: My Active Orders 04/25/19 11:47 Patient Status [ADT] Routine 04/25/19 12:00 Ciprofloxacin [Ciprofloxacin HCl] 500 mg PO Q18H
[2019-04-25] MEDS ORDERED: Furosemide 20 MG/2 ML VIAL IV ONE (13:09)
[2019-04-25] MEDS ORDERED: Sodium Chloride 0.9% 1,000 ML IV SCH (13:15)
[2019-04-25] MEDS ORDERED: TAZOBACTAM SCH (14:00)
[2019-04-25] MEDS ORDERED: VANCOMYCIN SCH (14:00)
[2019-04-25] MEDS ORDERED: PIPERACILLIN SCH (14:00)
[2019-04-25] MEDS ORDERED: Iopamidol 612 MG/ML 100 ML Bottle IVPUSH ONE (14:44)
--- NOTE | 2019-04-25 15:55 | CT ---
[id number] CT/CT Chest Abdomen Pelvis W IV EXAM: CT Chest Abdomen Pelvis W IV CLINICAL DATA: SHORTNESS OF BREATH, PNEUMONIA, COLON CANCER. COMPARISON STUDY: February 23, 2019. FINDINGS: Advanced changes of COPD, including extensive parenchymal emphysema with bulla formation. Dominant mass in the posterior aspect of the right lower lobe has not significantly changed in size, again measuring 30 x 30 x 45 mm. Compared to 28 x 30 x 45 mm previously in July 2018. However, inferior to the mass there is increased interstitial thickening appearing, some of which demonstrates a lymphangitic appearance. Similar findings of increased interstitial thickening and nodularity is seen in the left lung base as well. Findings are nonspecific and could represent lymphangitic for tumor versus superimposed infectious/inflammatory process. Of note, there are small bilateral loculated appearing pleural effusions that were not present on the prior examination. No pneumothorax. Abdomen and pelvis: Moderate amount of free fluid scattered throughout the abdomen extending into the dependent recesses of the pelvis. There is some hyperdense material layering dependently within the fluid seen on series 2 image 173. Abnormally dilated and fluid-filled loop of small bowel in the pelvis with mucosal hyperenhancement. There is transition to decompressed small bowel right of midline in the pelvis seen best on axial series 2 images 156-166. Proximal to this is also a transition from normal caliber proximal small bowel to dilated and gas-filled distal small bowel seen on axial series 2 image 155 Bones and soft tissues: No fracture, compression deformity, or osseous lesion. IMPRESSION: Abnormal appearance of the small bowel with at least one and possibly 2 transition points. Findings are most consistent radiographically with some degree of bowel obstruction, including a closed loop obstruction described in detail above. Increased free fluid in the abdomen and pelvis compared to the prior examination. Small bilateral pleural effusions and increased bibasal parenchymal airspace/interstitial opacities. Results relayed to Lawrence Duarte at time of dictation. Sd Duque MD 04/25/19 [id number] Thank you for allowing us to participate in the care of your patient.
[2019-04-25] MEDS ORDERED: Piperacillin/Tazobactam 2.25 GM in Sodium Chloride 0.9% 100 ML IV SCH ×4 (16:00)
[2019-04-25] MEDS ORDERED: LIDOCAINE PO SCH (16:00)
[2019-04-25] MEDS ORDERED: DIPHENHYD PO SCH (16:00)
[2019-04-25] MEDS ORDERED: NYSTATIN PO SCH (16:00)
--- NOTE | 2019-04-25 16:17 | HP ---
CHIEF COMPLAINT: Weakness. HISTORY OF PRESENT ILLNESS: The patient was brought to the emergency room at [facility] yesterday afternoon for concerns of increasing weakness, confusion, decreased appetite, and weight loss. The EMS had been called to the patient's house last Tuesday but refused to come to the emergency room. The patient had similar complaints at that time. The patient is status post colectomy that she had completed on 04/12/2019. The patient does have a history of lung cancer. The patient was recently diagnosed with colon cancer. The patient presented with more shortness of breath than usual, however, this is chronic at times due to her severe COPD. The patient does not have a history of diabetes, AL, or CVA. The patient states that she is feeling more weak today. The patient does not have a cough. She states she still feels short of breath. The patient has been requiring 8 L of oxygen. She is normally on home O2 at 4 L. The patient states she has not had much of an appetite. She states she is passing urine, however, she has not had any bowel movements since admission. The patient denies any chest pain, headache, or neck ache. The patient states she does not have any abdominal pain. She feels somewhat nauseated but has not vomited. She does not have any diarrhea. It is unknown at this time when her last bowel movement was. PAST MEDICAL HISTORY: 1. Graves disease. 2. Essential hypertension. 3. COPD, oxygen-dependent. 4. Spontaneous pneumothorax. 5. 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 6. GERD. 7. History of renal failure. 8. Positive blood in stool. 9. Osteoporosis. 10.Anxiety. 11.Hypothyroidism. 12.Vitamin D deficiency. 13.Nontoxic multinodular goiter. 14.Iron deficiency. 15.History of blood transfusions. PAST SURGICAL HISTORY: 1. Nasal procedure. 2. Colectomy on 04/12/2019. SOCIAL HISTORY: The patient lives alone in her own home. She does use a walker to aid with ambulation. The patient is an ex-smoker. The patient does not drink alcohol. The patient does require some help from the family and neighbors to meet some of her ADLs. FAMILY HISTORY: Noncontributory. ALLERGIES: 1. Amoxicillin. 2. Vioxx. MEDICATIONS: 1. Acetaminophen 650 mg p.o. every 4 hours as needed. 2. Diphenhydramine/lidocaine/nystatin mouthwash 5 mL p.o. 4 times daily. 3. Dicyclomine 10 mg 1 tablet p.o. twice daily as needed. 4. Prolia 60 mg subcu every 6 months. 5. Cyanocobalamin 1000 mcg p.o. daily. 6. Cholecalciferol 1000 units p.o. daily. 7. Ascorbic acid 1 tablet p.o. daily. 8. Albuterol sulfate HFA 2 puffs every 4 hours as needed. 9. Methimazole 2.5 mg p.o. daily. 10.Lorazepam 0.5 mg 1 tablet p.o. every 6 hours as needed. 11.Folic acid 1 mg p.o. daily. 12.Ferrous sulfate 325 mg 1 tab p.o. 3 times daily with meals. LABORATORY STUDIES: 1. White blood cell count 13.7, hemoglobin 8.9, hematocrit 28.9, platelets 305,000. 2. INR 1.1. 3. ABGs, pH 7.411, pCO2 of 50, PO2 of 129, bicarb 32, CO2 of 33, oxygen saturation 99, base excess is 7. 4. CMP; sodium is 142, potassium 3.2, chloride 102, CO2 is 34, anion gap is 9.2, BUN is 23, creatinine 0.8. GFR is greater than 60. Glucose 102, calcium 8.9, corrected calcium 10.34, total bilirubin 0.6, AST is 11, ALT is 11, alkaline phosphatase 93, protein is 6.5, albumin is 2.2. 5. Lactic acid 1.0. 6. Magnesium 2.0. 7. CRP 21.6. 8. TSH 2.867. 9. Urinalysis, pH of 6, specific gravity 1.020, positive protein, positive blood, positive leukocyte esterase, positive wbc's. Today's labs on 04/25/2019: 1. CBC, white blood cell count 12.3, hemoglobin 8.8, hematocrit 28.5, and platelets are 311,000. 2. BMP; sodium was 141, potassium 4.6, chloride is 106, CO2 is 30, anion gap is 9.6, BUN is 21, creatinine 0.9, creatinine clearance 26.78. GFR is greater than 60, glucose is 162, calcium 7.8. Microbiology: The patient's urine was positive for gram-negative rods. One bottle of 1 set of blood cultures was gram-positive rods. REVIEW OF SYSTEMS: Constitutional: The patient states she feels very weak. She states she thinks she had chills. The patient denies any subjective fever. Respiratory: Complains of shortness of breath, no cough. Cardiovascular: The patient denies any chest pain or palpitations. GI: The patient denies any abdominal pain. She does have some nausea. The patient denies any vomiting. : Denies any problems. Skin: Denies any problems. Neurological: The patient states she does feel somewhat confused. PHYSICAL EXAMINATION: General Appearance: The patient is alert. The patient does not appear to be in any acute distress. Patient appears to be cachectic and thin. Respiratory: Lungs are severely decreased. She has bilateral bibasilar crackles. The patient is on 8 L of high-flow oxygen. Cardiovascular: Heart tones are distant. Regular rate and rhythm. S1, S2 present. Abdomen: Soft. The patient has some tenderness in the left lower quadrant. Bowel sounds are hypoactive. Skin: Intact. Midline abdominal rona are intact over the incision line. No drainage from the incision site. Hands are cool. Neurological: The patient is confused. The patient is alert. No sensory deficits. ASSESSMENT: 1. Bacteremia. 2. Acute cystitis with hematuria. 3. Dehydration. 4. Physical deconditioning and weakness. 5. Acute confusion. 6. Essential hypertension. 7. Colon cancer. 8. History of lung cancer. 9. Acquired hypothyroidism. 10.Graves disease. 11.Iron-deficiency anemia. PLAN: 1. Bacteremia. We will stop the patient's Cipro. The patient will be started on IV vancomycin and started on Zosyn, but given amoxicillin allergy, we will start alternative therapy to the Zosyn. At this point, we do not know the ID and sensitivities of the blood cultures, therefore, the patient needs to be treated empirically. We will await the ID and sensitivities and either discontinue or change IV antibiotics depending upon the ID. 2. Acute cystitis with hematuria. Continue IV antibiotics and IV fluids. Encourage p.o. intake. 3. Dehydration. Continue with IV fluids and encourage p.o. intake. 4. The patient desires to be code 2. The patient does not wish to be transferred to a higher level of care should the need arise. We will involve case management for discharge planning. We will also consult Physical and Occupational Therapy for the patient's physical deconditioning. Our plan at this point, my recommendation is if the patient goes home, she would need Home Health and/or hospice. However, the patient's family needs to have a caregiver there 24 hours a day in order to qualify for home health or hospice. Other alternative would be admission to half-way and the patient would then be started on hospice per her wishes. I do suspect with the bacteremia and weakness the patient will require acute care stay for the next 3 to 4 days. May consider swing bed depending upon how the patient fares over the next couple of days. We will recheck a CBC and a BMP tomorrow morning. The patient's admitting BNP was over 3000 and her intake has been almost 2 L, therefore I will give the patient 20 of IV Lasix today. The patient does not have a history of congestive heart failure. We will also check a CT chest, abdomen, and pelvis CT today with IV contrast. I would like to rule out any pneumonia or any acute GI pathology given assessment findings and x-ray results from yesterday. The patient will be continued on her home medications. Note: This patient was seen and examined by me as an [facility] provider. TB: 04/25/2019 13:52:32 MODL: 04/25/2019 16:14:35 /[id number]
[2019-04-25 16:53] VITALS: BP 107/41; PULSE 86
--- NOTE | 2019-04-25 17:43 | PCM.DCSUM1 ---
Discharge Summary - Hospital Course Diagnosis: Stroke: No Modified Liam Scale: No Symptoms at All Modified Liam Scale Score: 0 - Discharge Data Discharge Date: 04/25/19 Discharge Disposition: DC/Tfer to Acute Hospital 02 Condition: Fair - Discharge Diagnosis/Problem(s) (1) SBO (small bowel obstruction) SNOMED Code(s): 966804328 ICD Code: K56.609 - UNSP INTESTNL OBST, UNSP TO PARTIAL VERSUS COMPLETE OBST Status: Acute Current Visit: Yes (2) Bacteremia SNOMED Code(s): 9268661 ICD Code: R78.81 - BACTEREMIA Status: Acute Current Visit: Yes (3) Colon cancer SNOMED Code(s): 796243679 ICD Code: C18.9 - MALIGNANT NEOPLASM OF COLON, UNSPECIFIED Status: Acute Current Visit: Yes (4) Dehydration SNOMED Code(s): 84165848 ICD Code: E86.0 - DEHYDRATION Status: Acute Current Visit: Yes (5) Weakness SNOMED Code(s): 50150376 ICD Code: R53.1 - WEAKNESS Status: Acute Current Visit: Yes (6) Physical deconditioning SNOMED Code(s): 44644602794413 ICD Code: R53.81 - OTHER MALAISE Status: Acute Current Visit: Yes (7) UTI, Urinary tract infectious disease SNOMED Code(s): 13066543 ICD Code: N39.0 - URINARY TRACT INFECTION, SITE NOT SPECIFIED Status: Acute Priority: Medium Current Visit: Yes - Patient Summary/Data Operative Procedure(s) Performed: None Consults: Consultations 04/24/19 18:17 Consult to Case Management/Pantry Goods Worker [CONS] Routine 04/25/19 12:07 Consult to Occupational Therapy [OT Evaluation and Treatment] [CONS] Routine PT Evaluation and Treatment [CONS] Routine Labs Pending at D/C: None Hospital Course: Patient remained hemodynamically stable and afebrile. She has a poor appetite. UO decreased despite IVF resuscitation. No pain per pain. CT of C/A/P reveals SBO. Lungs unchanged. Patient started on Vanco and Zosyn for bacteremia. Long discussed held with family regarding current condition. Options given and patient choose to be transferred to [place] at this point. - Discharge Plan *PRESCRIPTION DRUG MONITORING PROGRAM REVIEWED*: Not Applicable *COPY OF PRESCRIPTION DRUG MONITORING REPORT IN PATIENT RAISSA: Not Applicable Home Medications: Home Meds Albuterol Sulfate [Albuterol Sulfate HFA] 2 puff INH Q4HR PRN 08/21/13 [History] LORazepam [Ativan] 0.5 mg PO Q6HR PRN 08/21/13 [History] Ascorbic Acid [Vitamin C] 1 tab PO DAILY 04/25/15 [History] Methimazole [Tapazole] 2.5 mg PO DAILY 04/25/15 [History] Cholecalciferol (Vitamin D3) [Vitamin D3] 1,000 unit PO DAILY 01/19/19 [History] Cyanocobalamin (Vitamin B-12) [Vitamin B-12] 1,000 mcg PO DAILY 01/19/19 [ History] Ferrous Sulfate 325 mg PO TIDMEALS 01/19/19 [History] Folic Acid 1 mg PO DAILY 01/19/19 [History] Denosumab [Prolia] 60 mg SQ Q180D 03/07/19 [History] Acetaminophen [Tylenol] 650 mg PO Q4HR PRN MDD 4000mg per 24 hours 04/24/19 [ History] Dicyclomine [Bentyl] 10 mg PO BID PRN 04/24/19 [History] Diphenhyd/Lidocaine/Nystatin [First-Bxn Mouthwash] 5 ml PO QID 04/24/19 [History ] Forms: ED Department Discharge Referrals: Bridget Jefferson, [employer]PER[employer] [Primary Care Provider] - - Patient Data Vitals - Most Recent: Last Vital Signs Temp 97.6 F 04/25/19 16:51 Pulse 86 04/25/19 16:51 Resp 16 04/25/19 16:51 BP 107/41 L 04/25/19 16:51 Pulse Ox 91 L 04/25/19 16:51 Weight - Most Recent: 76 lb 4.8 oz I&O - Last 24 hours: Intake & Output 04/25/19 04/25/19 04/25/19 06:59 14:59 22:59 Intake Total 1555 Output Total 750 Balance 1555 -750 Lab Results - Last 24 hrs: Laboratory Results - last 24 hr 04/25/19 04/25/19 Range/Units 06:42 06:42 WBC 12.3 H (4.0-10.0) x10^3/uL RBC 3.03 L (4.00-5.50) x10^6/uL Hgb 8.8 L (12.0-16.0) g/dL Hct 28.5 L (33.0-47.0) % MCV 94.1 H (78.0-93.0) fL MCH 29.0 (26.0-32.0) pg MCHC 30.9 L (32.0-36.0) g/dL RDW Coeff of Nazanin 15.5 H (10.0-15.0) % Plt Count 311 (130-400) x10^3/uL Neut % (Auto) 97.5 H (50.0-80.0) % Lymph % (Auto) 1.1 L (25.0-50.0) % Noble % (Auto) 1.4 L (2.0-11.0) % Eos % (Auto) 0.0 (0.0-4.0) % Baso % (Auto) 0.0 L (0.2-1.2) % Sodium 141 (136-145) mmol/L Potassium 4.6 (3.5-5.1) mmol/L Chloride 106 (98-107) mmol/L Carbon Dioxide 30 (21-32) mmol/L Anion Gap 9.6 L (10-20) mmol/L BUN 21 H (7-18) mg/dL Creatinine 0.9 (0.55-1.02) mg/dL Est Cr Clr Drug Dosing 26.78 mL/min Estimated GFR (MDRD) > 60 Glucose 162 H (74-106) mg/dL Calcium 7.8 L (8.5-10.1) mg/dL MARBELLA Results - Last 24 hrs: Microbiology 04/24/19 11:23 Aerobic Blood Culture - Preliminary Blood - Venous - Lab Draw NO GROWTH AFTER 1 DAY Anaerobic Blood Culture - Preliminary Gram Positive Rods 04/24/19 11:16 Aerobic Blood Culture - Preliminary Blood - Venous NO GROWTH AFTER 1 DAY Anaerobic Blood Culture - Preliminary NO GROWTH AFTER 1 DAY 04/24/19 12:14 Urine Culture - Preliminary Urine, Clean Catch Gram Negative Rods Med Orders - Current: Current Medications Acetaminophen (Tylenol) 650 mg PO Q4HR PRN PRN Reason: Pain Albuterol (Proventil Neb Soln) 2.5 mg INH Q4H PRN PRN Reason: Dyspnea Albuterol/Ipratropium (Duoneb 3.0-0.5 Mg/3 Ml) 3 ml NEB Q4H PRN PRN Reason: dyspnea/wheezing Bisacodyl (Dulcolax) 5 mg PO DAILY PRN PRN Reason: Constipation Dicyclomine HCl (Bentyl) 10 mg PO BID PRN PRN Reason: Nausea Ferrous Sulfate (Ferrous Sulfate) 325 mg PO TIDMEALS [facility] Last Admin: 04/25/19 11:56 Dose: 325 mg Folic Acid (Folic Acid) 1 mg PO DAILY [facility] Last Admin: 04/25/19 09:06 Dose: 1 mg Sodium Chloride (Normal Saline) 1,000 mls @ 75 mls/hr IV ASDIRECTED [facility] Last Admin: 04/25/19 13:27 Dose: 75 mls/hr Vancomycin HCl 500 mg/ Sodium (Chloride) 100 mls @ 200 mls/hr IV Q24H [facility] Last Admin: 04/25/19 14:05 Dose: 200 mls/hr Piperacillin Sod/Tazobactam (Sod 2.25 gm/ Sodium Chloride) 100 mls @ 25 mls/hr IV Q8H [facility] Last Admin: 04/25/19 16:20 Dose: 25 mls/hr Lorazepam (Ativan) 0.5 mg PO Q6HR PRN PRN Reason: Anxiety Last Admin: 04/24/19 21:53 Dose: 0.5 mg Methimazole (Methimazole) 2.5 mg PO DAILY [facility] Last Admin: 04/25/19 09:06 Dose: 2.5 mg Morphine Sulfate (Morphine) 2 mg IVPUSH Q2H PRN PRN Reason: Pain (severe 7-10) Last Admin: 04/24/19 20:55 Dose: 2 mg Diphenhyd/Lidocaine/Nystatin [Magic Mouthwash] 0 ml PO QID [facility] Last Admin: 04/25/19 15:37 Dose: Not Given Ondansetron HCl (Zofran) 4 mg IV Q6H PRN PRN Reason: Nausea/Vomiting Pharmacy Consult (Consult To Pharmacy) 1 each .XX ASDIRECTED [facility] Sodium Chloride (Saline Flush) 10 ml FLUSH ASDIRECTED PRN PRN Reason: Keep Vein Open Temazepam (Restoril) 15 mg PO BEDTIME PRN PRN Reason: Sleep Discontinued Medications Ceftriaxone Sodium (Rocephin) 1 gm IVPUSH STAT ONE Stop: 04/24/19 12:50 Last Admin: 04/24/19 13:05 Dose: 1 gm Ciprofloxacin (Ciprofloxacin Hcl) 500 mg PO BID [facility] Last Admin: 04/25/19 08:56 Dose: Not Given Ciprofloxacin (Ciprofloxacin Hcl) 500 mg PO Q18H [facility] Last Admin: 04/25/19 11:56 Dose: 500 mg Furosemide (Lasix) 20 mg IV ONETIME ONE Stop: 04/25/19 13:10 Last Admin: 04/25/19 13:36 Dose: 20 mg Sodium Chloride (Normal Saline) 1,000 mls @ 999 mls/hr IV ASDIRECTED [facility] Last Admin: 04/24/19 11:42 Dose: 999 mls/hr Potassium Chloride/Dextrose/Sod Cl (D5 1/2 Ns W/ 40 Meq/L Kcl) 1,000 mls @ 100 mls/hr IV ASDIRECTED [facility] Last Admin: 04/25/19 00:38 Dose: 100 mls/hr Iopamidol (Isovue-300 (61%)) 100 ml IVPUSH ONETIME ONE Stop: 04/25/19 14:45 Methylprednisolone Sodium Succinate (Solu-Medrol) 40 mg IVPUSH ONETIME ONE Stop: 04/24/19 11:03 Last Admin: 04/24/19 11:43 Dose: 40 mg
--- NOTE | 2019-04-25 18:17 | PCM.DCSUM1 ---
Discharge Summary - Hospital Course HPI Initial Comments: 83 yo female patient came to the ER via EMS for weakness, poor appetite, and weight loss yesterday evening. Patient was admitted observation for UTI and fluid rehydration. Patient had positive blood cultures today so status upgraded to acute. CT of C/A/P revealed a complete SBO. Patient is s/p Colectomy on 04/12/2019. Surgery was uneventful and patient was discharged home on home health. 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 No apparent oncology treatments started. Diagnosis: Stroke: No Modified Sunshine Scale: No Symptoms at All Modified Sunshine Scale Score: 0 - Discharge Data Discharge Date: 04/25/19 Discharge Disposition: DC/Tfer to Acute Hospital 02 Condition: Fair - Discharge Diagnosis/Problem(s) (1) SBO (small bowel obstruction) SNOMED Code(s): 052500466 ICD Code: K56.609 - UNSP INTESTNL OBST, UNSP TO PARTIAL VERSUS COMPLETE OBST Status: Acute Current Visit: Yes (2) Bacteremia SNOMED Code(s): 9106980 ICD Code: R78.81 - BACTEREMIA Status: Acute Current Visit: Yes (3) Colon cancer SNOMED Code(s): 908453629 ICD Code: C18.9 - MALIGNANT NEOPLASM OF COLON, UNSPECIFIED Status: Acute Current Visit: Yes (4) Dehydration SNOMED Code(s): 31617501 ICD Code: E86.0 - DEHYDRATION Status: Acute Current Visit: Yes (5) Weakness SNOMED Code(s): 20017769 ICD Code: R53.1 - WEAKNESS Status: Acute Current Visit: Yes (6) Physical deconditioning SNOMED Code(s): 67734160010620 ICD Code: R53.81 - OTHER MALAISE Status: Acute Current Visit: Yes (7) UTI, Urinary tract infectious disease SNOMED Code(s): 12644146 ICD Code: N39.0 - URINARY TRACT INFECTION, SITE NOT SPECIFIED Status: Acute Priority: Medium Current Visit: Yes - Patient Summary/Data Operative Procedure(s) Performed: Colectomy on 04/12/2019 at [facility] Consults: Consultations 04/24/19 18:17 Consult to Case Management/Disaster Response Director [CONS] Routine 04/25/19 12:07 Consult to Occupational Therapy [OT Evaluation and Treatment] [CONS] Routine PT Evaluation and Treatment [CONS] Routine Hospital Course: Patient remained hemodynamically stable and afebrile. Positive blood cultures empirically being treated with Vanco and Zosyn. UA shows E. Coli. Patient has a poor appetite. Not much UO despite IVF hydration. Patient still weak and deconditioned. - Patient Instructions Diet: NPO - Discharge Plan *PRESCRIPTION DRUG MONITORING PROGRAM REVIEWED*: Not Applicable *COPY OF PRESCRIPTION DRUG MONITORING REPORT IN PATIENT RAISSA: Not Applicable Home Medications: Home Meds Albuterol Sulfate [Albuterol Sulfate HFA] 2 puff INH Q4HR PRN 08/21/13 [History] LORazepam [Ativan] 0.5 mg PO Q6HR PRN 08/21/13 [History] Ascorbic Acid [Vitamin C] 1 tab PO DAILY 04/25/15 [History] Methimazole [Tapazole] 2.5 mg PO DAILY 04/25/15 [History] Cholecalciferol (Vitamin D3) [Vitamin D3] 1,000 unit PO DAILY 01/19/19 [History] Cyanocobalamin (Vitamin B-12) [Vitamin B-12] 1,000 mcg PO DAILY 01/19/19 [ History] Ferrous Sulfate 325 mg PO TIDMEALS 01/19/19 [History] Folic Acid 1 mg PO DAILY 01/19/19 [History] Denosumab [Prolia] 60 mg SQ Q180D 03/07/19 [History] Acetaminophen [Tylenol] 650 mg PO Q4HR PRN MDD 4000mg per 24 hours 04/24/19 [ History] Dicyclomine [Bentyl] 10 mg PO BID PRN 04/24/19 [History] Diphenhyd/Lidocaine/Nystatin [Magic Mouthwash] 5 ml PO QID 04/24/19 [History] Piperacillin/Tazobactam [Zosyn] 2.25 gm IV Q8H vial 04/25/19 [Rx] Sodium Chloride 0.9% [Normal Saline] 100 ml IV ASDIRECTED bag 04/25/19 [Rx] Sodium Chloride 0.9% [Saline Flush] 10 ml FLUSH ASDIRECTED PRN syringe [Rx] Temazepam [Restoril] 15 mg PO BEDTIME PRN cap 04/25/19 [Rx] Vancomycin 500 mg IV Q24H sdv 04/25/19 [Rx] Oxygen Therapy Mode: Nasal Cannula Oxygen Flow Rate (L/min): 4 Maintain SPO2% less than: 92 Maintain SpO2% greater than: 88 Forms: Interfacility Transfer EMTALA - Discharge Summary/Plan Comment DC Time >30 min.: Yes Discharge Summary/Plan Comment: Patient will be transferred to [facility]. Patient and family consent to transfer. Patient signed out to Dr. Esquivel, Hospitalist. All questions answered. Patient will be sent via [facility] ground. - General Info Date of Service: 04/25/19 Admission Dx/Problem (Free Text: Pt. continues to be very weak and unable to ambulate. Urine and blood cultures + for gram + rods. She has been afebrile since admission. Potassium was repleted and has increased to 4.6 from 3.2. Pt. denies any chest pain or shortness of breath. Appetite has been poor. Pt. denies any nausea or vomiting. No chest pain or shortness of breath. Denies any diarrhea. Pt. is adamant that she be discharged today, despite being septic and severely ill. Discussed this at length with patient. I spoke with son, Jp who states that no family members would be able to help the patient. Pt. seemed confused about her diagnoses, plan of care, etc. and I question her ability to be able to make accurate decisions. Son concurs that the patient have been having trouble taking care of herself and questions her cognitive ability. Subjective Update: Patient offers no specific complaints at time of discharge. She is concerned about the possibility of surgery and how she will fair. She states she really does not have much of an appetite. UO has been poor. She denies any pain. No issues with abdominal problems that she is aware of. Functional Status: Reports: Pain Controlled, Tolerating Diet. Denies: Ambulating, Urinating, New Symptoms Numeric/FACES Score: 0 - Review of Systems General: Reports: Weakness. Denies: Fever, Chills Pulmonary: Reports: Shortness of Breath (chronic). Denies: Cough Cardiovascular: Reports: Dyspnea on Exertion (chronic). Denies: Chest Pain, Palpitations Gastrointestinal: Denies: Abdominal Pain, Nausea, Vomiting Skin: Denies: No Symptoms Neurological: Denies: No Symptoms - Patient Data Vitals - Most Recent: Last Vital Signs Temp 97.6 F 04/25/19 16:51 Pulse 86 04/25/19 16:51 Resp 16 04/25/19 16:51 BP 107/41 L 04/25/19 16:51 Pulse Ox 91 L 04/25/19 16:51 Weight - Most Recent: 76 lb 4.8 oz I&O - Last 24 hours: Intake & Output 04/25/19 04/25/19 04/25/19 06:59 14:59 22:59 Intake Total 1555 365 Output Total 750 Balance 1555 -385 Lab Results - Last 24 hrs: Laboratory Results - last 24 hr 04/25/19 04/25/19 Range/Units 06:42 06:42 WBC 12.3 H (4.0-10.0) x10^3/uL RBC 3.03 L (4.00-5.50) x10^6/uL Hgb 8.8 L (12.0-16.0) g/dL Hct 28.5 L (33.0-47.0) % MCV 94.1 H (78.0-93.0) fL MCH 29.0 (26.0-32.0) pg MCHC 30.9 L (32.0-36.0) g/dL RDW Coeff of Nazanin 15.5 H (10.0-15.0) % Plt Count 311 (130-400) x10^3/uL Neut % (Auto) 97.5 H (50.0-80.0) % Lymph % (Auto) 1.1 L (25.0-50.0) % [place] % (Auto) 1.4 L (2.0-11.0) % Eos % (Auto) 0.0 (0.0-4.0) % Baso % (Auto) 0.0 L (0.2-1.2) % Sodium 141 (136-145) mmol/L Potassium 4.6 (3.5-5.1) mmol/L Chloride 106 (98-107) mmol/L Carbon Dioxide 30 (21-32) mmol/L Anion Gap 9.6 L (10-20) mmol/L BUN 21 H (7-18) mg/dL Creatinine 0.9 (0.55-1.02) mg/dL Est Cr Clr Drug Dosing 26.78 mL/min Estimated GFR (MDRD) > 60 Glucose 162 H (74-106) mg/dL Calcium 7.8 L (8.5-10.1) mg/dL MARBELLA Results - Last 24 hrs: Microbiology 04/24/19 11:23 Aerobic Blood Culture - Preliminary Blood - Venous - Lab Draw NO GROWTH AFTER 1 DAY Anaerobic Blood Culture - Preliminary Gram Positive Rods 04/24/19 11:16 Aerobic Blood Culture - Preliminary Blood - Venous NO GROWTH AFTER 1 DAY Anaerobic Blood Culture - Preliminary NO GROWTH AFTER 1 DAY 04/24/19 12:14 Urine Culture - Preliminary Urine, Clean Catch Gram Negative Rods Med Orders - Current: Current Medications Acetaminophen (Tylenol) 650 mg PO Q4HR PRN PRN Reason: Pain Albuterol (Proventil Neb Soln) 2.5 mg INH Q4H PRN PRN Reason: Dyspnea Albuterol/Ipratropium (Duoneb 3.0-0.5 Mg/3 Ml) 3 ml NEB Q4H PRN PRN Reason: dyspnea/wheezing Bisacodyl (Dulcolax) 5 mg PO DAILY PRN PRN Reason: Constipation Dicyclomine HCl (Bentyl) 10 mg PO BID PRN PRN Reason: Nausea Ferrous Sulfate (Ferrous Sulfate) 325 mg PO TIDMEALS [facility] Last Admin: 04/25/19 18:09 Dose: Not Given Folic Acid (Folic Acid) 1 mg PO DAILY [facility] Last Admin: 04/25/19 09:06 Dose: 1 mg Sodium Chloride (Normal Saline) 1,000 mls @ 75 mls/hr IV ASDIRECTED [facility] Last Admin: 04/25/19 13:27 Dose: 75 mls/hr Vancomycin HCl 500 mg/ Sodium (Chloride) 100 mls @ 200 mls/hr IV Q24H [facility] Last Admin: 04/25/19 14:05 Dose: 200 mls/hr Piperacillin Sod/Tazobactam (Sod 2.25 gm/ Sodium Chloride) 100 mls @ 25 mls/hr IV Q8H [facility] Last Admin: 04/25/19 16:20 Dose: 25 mls/hr Lorazepam (Ativan) 0.5 mg PO Q6HR PRN PRN Reason: Anxiety Last Admin: 04/24/19 21:53 Dose: 0.5 mg Methimazole (Methimazole) 2.5 mg PO DAILY [facility] Last Admin: 04/25/19 09:06 Dose: 2.5 mg Morphine Sulfate (Morphine) 2 mg IVPUSH Q2H PRN PRN Reason: Pain (severe 7-10) Last Admin: 04/24/19 20:55 Dose: 2 mg Diphenhyd/Lidocaine/Nystatin [Magic Mouthwash] 0 ml PO QID [facility] Last Admin: 04/25/19 15:37 Dose: Not Given Ondansetron HCl (Zofran) 4 mg IV Q6H PRN PRN Reason: Nausea/Vomiting Pharmacy Consult (Consult To Pharmacy) 1 each .XX ASDIRECTED [facility] Sodium Chloride (Saline Flush) 10 ml FLUSH ASDIRECTED PRN PRN Reason: Keep Vein Open Temazepam (Restoril) 15 mg PO BEDTIME PRN PRN Reason: Sleep Discontinued Medications Ceftriaxone Sodium (Rocephin) 1 gm IVPUSH STAT ONE Stop: 04/24/19 12:50 Last Admin: 04/24/19 13:05 Dose: 1 gm Ciprofloxacin (Ciprofloxacin Hcl) 500 mg PO BID [facility] Last Admin: 04/25/19 08:56 Dose: Not Given Ciprofloxacin (Ciprofloxacin Hcl) 500 mg PO Q18H [facility] Last Admin: 04/25/19 11:56 Dose: 500 mg Furosemide (Lasix) 20 mg IV ONETIME ONE Stop: 04/25/19 13:10 Last Admin: 04/25/19 13:36 Dose: 20 mg Sodium Chloride (Normal Saline) 1,000 mls @ 999 [facility]ls[facility] Last Admin: 04/24/19 11:42 Dose: 999 mls/hr Potassium Chloride/Dextrose/Sod Cl (D5 1/2 Ns W/ 40 Meq/L Kcl) 1,000 mls @ 100 [facility]ls[facility] Last Admin: 04/25/19 00:38 Dose: 100 mls/hr Iopamidol (Isovue-300 (61%)) 100 ml IVPUSH ONETIME ONE Stop: 04/25/19 14:45 Methylprednisolone Sodium Succinate (Solu-Medrol) 40 mg IVPUSH ONETIME ONE Stop: 04/24/19 11:03 Last Admin: 04/24/19 11:43 Dose: 40 mg - Exam Quality Assessment: Reports: Supplemental Oxygen, Skin Breakdown (abdominal incision) General: Reports: Alert, Cooperative, No Acute Distress Lungs: Reports: Normal Respiratory Effort, Decreased Breath Sounds Cardiovascular: Reports: Regular Rate, Regular Rhythm GI/Abdominal Exam: Tender, Abnormal Bowel Sounds (absent) Skin: Reports: Warm, Dry, Intact (rona intact mid abd) Wound/Incisions: Reports: Healing Well, No Drainage Neurological: Reports: No New Focal Deficit *Q Meaningful Use (DIS) - VTE *Q VTE Mechanical Contraindications *Q: At Risk for Falls
== END 2019-04-25 18:48 | disposition short-term general hospital (02) | DRG 872 ==
LOC: VM.ED 10:52 → UNDOADMIN 12:41 → VM.MS 12:41 → INTOOBSV 13:26 → OBSVTOIN 04-25 11:47
PROVIDERS: ADMIT Nurse Practitioner Family; ATTEND Nurse Practitioner Family
DX: A41.9 Sepsis, unspecified organism (principal); N30.01 Acute cystitis with hematuria; K56.609 Unspecified intestinal obstruction, unspecified as to partial versus complete obstruction; C18.9 Malignant neoplasm of colon, unspecified; E86.0 Dehydration; B96.20 Unspecified Escherichia coli [E. coli] as the cause of diseases classified elsewhere; J44.9 Chronic obstructive pulmonary disease, unspecified; K21.9 Gastro-esophageal reflux disease without esophagitis; E05.00 Thyrotoxicosis with diffuse goiter without thyrotoxic crisis or storm; I10 Essential (primary) hypertension; M81.0 Age-related osteoporosis without current pathological fracture; F41.9 Anxiety disorder, unspecified; E55.9 Vitamin D deficiency, unspecified; R41.0 Disorientation, unspecified; D50.9 Iron deficiency anemia, unspecified; E03.9 Hypothyroidism, unspecified; R53.81 Other malaise; Z79.899 Other long term (current) drug therapy; Z90.89 Acquired absence of other organs; Z85.118 Personal history of other malignant neoplasm of bronchus and lung; Z99.81 Dependence on supplemental oxygen; Z87.891 Personal history of nicotine dependence; Z88.0 Allergy status to penicillin; Z88.8 Allergy status to other drugs, medicaments and biological substances; Z98.890 Other specified postprocedural states; Z90.49 Acquired absence of other specified parts of digestive tract; R53.1 Weakness; R06.02 Shortness of breath
CPT/HCPCS: 36415 ×2; 36600; 71045; 80048; 80053; 81001; 82803; 83605; 83735; 83880; 84443; 84484; 85025 ×2; 85610; 86140; 87040 ×2; 87075; 87076; 87086; 87088; 87186; 93005; 94760; 96361; 96365; 96366; 96375 ×3; 99285; A9270 ×6; G0378 ×2; J0696; J2270; J2920; J3480 ×2; J7030; 71260; 74177; 96374; 97161-GP; 97530-GP; J1940; J2543; J3370; J7050; Q9967